=== PATIENT | female | born 1955 | race Caucasian/White ===

== ENCOUNTER 2018-10-03 09:29 | Emergency (ER) | payer MEDICARE ==
[~2018-10-03] VITALS: Ht 162.6 cm; Wt 72.7 kg
[~2018-10-03 09:29] MED LIST: MULT-1096 PO; NORCO10T PO
[2018-10-03] MEDS ORDERED: ketorolac trometh inj. 60 MG/2 ML VIAL IM ONE (10:00)
--- NOTE | 2018-10-03 10:08 | NUR ---
CUT RING OFF OF RIGHT RING FINGER
[2018-10-03] MEDS ORDERED: TRAM50TA2 PO (10:56)
[2018-10-03 11:12] VITALS: BP 165/81
== END 2018-10-03 11:40 | disposition home or self-care (01) ==
LOC: ER 09:30
DX: S62.111A Displaced fracture of triquetrum [cuneiform] bone, right wrist, initial encounter for closed fracture (principal); I10 Essential (primary) hypertension; J44.9 Chronic obstructive pulmonary disease, unspecified; Z79.899 Other long term (current) drug therapy; Z91.011 Allergy to milk products; W06.XXXA Fall from bed, initial encounter; Y93.89 Activity, other specified; Y92.092 Bedroom in other non-institutional residence as the place of occurrence of the external cause; Y99.9 Unspecified external cause status
CPT/HCPCS: 29125; 73110; 96372; 99284; J1885

== ENCOUNTER 2018-10-10 08:36 | Emergency (ER) | payer MEDICARE ==
[~2018-10-10] VITALS: Ht 162.6 cm; Wt 72.7 kg
[2018-10-10 10:52] VITALS: BP 147/72
== END 2018-10-10 10:45 | disposition home or self-care (01) ==
LOC: ER 08:37
DX: S62.111D Displaced fracture of triquetrum [cuneiform] bone, right wrist, subsequent encounter for fracture with routine healing (principal); I10 Essential (primary) hypertension; J44.9 Chronic obstructive pulmonary disease, unspecified; Z91.011 Allergy to milk products; Z79.899 Other long term (current) drug therapy; X58.XXXD Exposure to other specified factors, subsequent encounter
CPT/HCPCS: 29125; 99283

== ENCOUNTER 2018-10-20 15:17 | Outpatient (CLI) | payer MEDICARE | END 2018-10-20 16:30 | disposition home or self-care (01) | LOC: ORTHO 15:17 | PROVIDERS: ATTEND Orthopaedic Surgery | DX: S63.591D Other specified sprain of right wrist, subsequent encounter (principal); X58.XXXD Exposure to other specified factors, subsequent encounter | CPT/HCPCS: 73110; G0463 ==